=== PATIENT | male | born 1985 | race African-American/Black ===

== ENCOUNTER 2016-11-25 09:52 | Emergency (ER) | payer OTHER ==
[~2016-11-25] VITALS: Ht 185.4 cm; Wt 90.9 kg
[2016-11-25] MEDS ORDERED: TETRACAINE 0.5% OPHTH SOLN 4ML OU ONE (11:00)
[2016-11-25 11:08] VITALS: BP 139/80
[2016-11-25] MEDS ORDERED: NAPHSOL OS (11:09)
== END 2016-11-25 11:15 | disposition home or self-care (01) ==
LOC: M ED 09:52
DX: H10.9 Unspecified conjunctivitis (principal); F17.200 Nicotine dependence, unspecified, uncomplicated

== ENCOUNTER 2022-11-18 13:45 | Emergency (ER) | payer OTHER ==
[~2022-11-18] VITALS: Ht 185.4 cm; Wt 103.6 kg
[~2022-11-18 13:45] MED LIST: NAPHSOL OS
[2022-11-18] MEDS ORDERED: OMEG10002 PO (14:02)
[2022-11-18] MEDS ORDERED: LIDOCAINE W/EPINEPHRINE 1% 20ML VIAL SC ONE (16:05)
[2022-11-18] MEDS ORDERED: NORCO, ANEXSIA 5/325MG TABLET (HYDROcodone/ACETAMINOPHEN) PO ONE (17:00)
[2022-11-18] MEDS ORDERED: HYDR-3713 PO (17:00)
[2022-11-18] MEDS ORDERED: BOOSTRIX VACCINE (TETANUS/DIPHTH/ACEL. PERTUSSIS) 0.5ML SYR IM ONE (17:00)
[2022-11-18 18:14] VITALS: BP 170/110; TEMP 99.7; O2SAT 96
== END 2022-11-18 18:12 | disposition home or self-care (01) ==
LOC: M ED 13:45
DX: S01.512A Laceration without foreign body of oral cavity, initial encounter (principal); S02.2XXA Fracture of nasal bones, initial encounter for closed fracture; S62.344A Nondisplaced fracture of base of fourth metacarpal bone, right hand, initial encounter for closed fracture; S03.2XXA Dislocation of tooth, initial encounter; I10 Essential (primary) hypertension; Y04.0XXA Assault by unarmed brawl or fight, initial encounter; Y92.009 Unspecified place in unspecified non-institutional (private) residence as the place of occurrence of the external cause; Y93.9 Activity, unspecified; Y99.9 Unspecified external cause status; Z23 Encounter for immunization

== ENCOUNTER → 2022-12-17 | Outpatient (CLI) | payer OTHER ==
[~2022-12-17] MED LIST changes: +HYDR-3713 PO; +OMEG10002 PO
== END ==
LOC: M SOG 07:53
PROVIDERS: ATTEND Physician Assistant
DX: S62.334A Displaced fracture of neck of fourth metacarpal bone, right hand, initial encounter for closed fracture (principal); Y93.9 Activity, unspecified; Y92.9 Unspecified place or not applicable